=== PATIENT | female | born 1925 | race Caucasian/White ===

== ENCOUNTER 2016-09-09 09:48 | Inpatient (IN) | payer OTHER, BC ==
[~2016-09-09] VITALS: Ht 160 cm; Wt 56.9 kg
[~2016-09-09 09:48] MED LIST: ACETAMINOPHEN-1 EAC1 PO; HEPARIN SO5000 UNITS SC; SENNA PLUS TAB1 EACH PO; SYNTHROID50 MCG PO; THERAGRAN1 TABLET PO
[2016-09-09 11:05] LABS: EOSINOPHIL (%) 0.1 % (0-5); HEMATOCRIT 45.7 % (36.0-46.0); IMMATURE GRANULOCYTE (%) 0.2 % (0.0-0.7); IMMATURE GRANULOCYTE COUNT 0.2 K/uL; LYMPHOCYTE COUNT 0.6 K/uL (1.0-2.8); MCH 30.4 PG (29.0-34.0); MCHC 33.9 G/DL (30.0-36.0); MCV 89.6 FL (83-99); MEAN PLAT.VOLUME 10.8 uM^3 (9.5-12.4); MONOCYTE (%) 7.2 % (3-12); MONOCYTE COUNT 0.7 K/uL (0-0.8); NEUTROPHIL COUNT 8.4 K/uL (1.8-6.4); PLATELET COUNT 149 K/uL (156-360); RBC DIS.WIDTH-CV 13.3 % (11.8-14.6); RBC DIS.WIDTH-SD 42.7 % (39-53); WHITE BLOOD COUNT 9.8 K/uL (4.1-10.2)
[2016-09-09 11:10] LABS: INFLUENZA A VIRAL ANTIGEN POSITIVE; INFLUENZA B VIRAL ANTIGEN NEGATIVE
[2016-09-09 11:11] LABS: EOSINOPHIL (%) 0.5 % (0-5); EOSINOPHIL COUNT 0.1 K/uL (0-0.3); HEMATOCRIT 45.3 % (36.0-46.0); IMMATURE GRANULOCYTE (%) 0.3 % (0.0-0.7); IMMATURE GRANULOCYTE COUNT 0.3 K/uL; LYMPHOCYTE COUNT 0.5 K/uL (1.0-2.8); MCH 30.6 PG (29.0-34.0); MCHC 34.2 G/DL (30.0-36.0); MCV 89.3 FL (83-99); MONOCYTE (%) 9.2 % (3-12); MONOCYTE COUNT 0.9 K/uL (0-0.8); NEUTROPHIL COUNT 8.4 K/uL (1.8-6.4); PLATELET COUNT 150 K/uL (156-360); RBC DIS.WIDTH-CV 13.2 % (11.8-14.6); RBC DIS.WIDTH-SD 42.8 % (39-53); RED BLOOD COUNT 5.07 M/uL (3.80-5.20); WHITE BLOOD COUNT 9.9 K/uL (4.1-10.2)
[2016-09-09 11:14] LABS: CHLORIDE 95 mEq/L (99-109); POTASSIUM 4.6 mEq/L (3.7-5.4); SODIUM 134 mEq/L (136-147)
[2016-09-09 11:16] LABS: GLUCOSE 105 mg/dL (70-99)
[2016-09-09 11:17] LABS: ANION GAP 12 MEQ/L (2-14)
[2016-09-09 11:18] LABS: TOTAL BILIRUBIN 0.5 mg/dL (0.0-1.0)
[2016-09-09 11:19] LABS: ALKALINE PHOSPHATASE 68 IU/L (3-129)
[2016-09-09 11:20] LABS: GFR ESTIMATE (CALCULATED) > 59 mL/min/
[2016-09-09 11:21] LABS: UREA NITROGEN (BUN) 12 mg/dL (9-23)
[2016-09-09 11:22] LABS: ADD MIUA? YES; BILIRUBIN NEGATIVE; BLOOD SMALL; COLOR YELLOW ((YELLOW)); GLUCOSE (STRIP) NEGATIVE; KETONES 40; LEUKOCYTES NEGATIVE; NITRITE NEGATIVE; PROTEIN (STRIP) 30; SPECIFIC GRAVITY 1.014 (1.000-1.030)
[2016-09-09 11:23] LABS: CHLORIDE 95 mEq/L (99-109); GFR ESTIMATE (CALCULATED) > 59 mL/min/; GLUCOSE 105 mg/dL (70-99); POTASSIUM 4.6 mEq/L (3.7-5.4); SODIUM 134 mEq/L (136-147); UREA NITROGEN (BUN) 12 mg/dL (9-23)
[2016-09-09 11:49] LABS: BACTERIA NONE SEEN /HPF; EPITHELIAL CELLS RARE /HPF; MUCUS TRACE /LPF; RED BLOOD CELLS 0-5 /HPF (0-5); UCUL ADDED? NO; WHITE BLOOD CELLS 0-5 /HPF (0-5)
[2016-09-09] MEDS ORDERED: ATHENOL325 MG PO (14:00)
[2016-09-09] MEDS ORDERED: ONE DAILY TABL1 EAC1 PO (14:01)
[2016-09-09 19:01] VITALS: BP 125/80
[2016-09-09 20:40] VITALS: BP 116/78
[2016-09-09 23:18] VITALS: BP 118/78
[2016-09-10 03:04] VITALS: BP 139/63
[2016-09-10 06:43] LABS: EOSINOPHIL (%) 0 % (0-5); HEMATOCRIT 39.5 % (36.0-46.0); IMMATURE GRANULOCYTE (%) 0.1 % (0.0-0.7); LYMPHOCYTE COUNT 0.6 K/uL (1.0-2.8); MCH 29.1 PG (29.0-34.0); MCHC 32.4 G/DL (30.0-36.0); MCV 89.8 FL (83-99); MEAN PLAT.VOLUME 10.8 uM^3 (9.5-12.4); MONOCYTE (%) 7.6 % (3-12); MONOCYTE COUNT 0.6 K/uL (0-0.8); NEUTROPHIL (%) 84.6 % (45-76); PLATELET COUNT 161 K/uL (156-360); RBC DIS.WIDTH-CV 13.2 % (11.8-14.6); RBC DIS.WIDTH-SD 43.5 % (39-53); WHITE BLOOD COUNT 8.3 K/uL (4.1-10.2)
[2016-09-10 06:46] LABS: ANION GAP 9 MEQ/L (2-14); CHLORIDE 96 MEQ/L (99-109); GFR ESTIMATE (CALCULATED) > 59 mL/min/; GLUCOSE 101 mg/dL (70-99); SAMPLE HEMOLYSIS CHECK 0; SAMPLE ICTERIC CHECK 0; SAMPLE LIPEMIA CHECK 0; SODIUM 134 MEQ/L (136-147); UREA NITROGEN (BUN) 11 mg/dL (9-23)
[2016-09-10 06:47] LABS: POTASSIUM 3.6 MEQ/L (3.7-5.4)
[2016-09-10 08:47] VITALS: BP 113/67
[2016-09-10 11:00] VITALS: BP 115/62
[2016-09-10 18:19] VITALS: BP 140/35
[2016-09-10 19:40] VITALS: BP 119/61
[2016-09-10 22:39] VITALS: BP 118/62; BP 18/62
[2016-09-11 02:58] VITALS: BP 120/62
[2016-09-11 08:06] VITALS: BP 135/95
[2016-09-11 10:59] VITALS: BP 123/63
[2016-09-11 16:18] VITALS: BP 126/78
[2016-09-11 23:50] VITALS: BP 128/80
[2016-09-12 06:10] LABS: EOSINOPHIL (%) 0.3 % (0-5); HEMATOCRIT 36.7 % (36.0-46.0); IMMATURE GRANULOCYTE (%) 0.2 % (0.0-0.7); LYMPHOCYTE COUNT 0.6 K/uL (1.0-2.8); MCHC 32.4 G/DL (30.0-36.0); MCV 89.3 FL (83-99); MEAN PLAT.VOLUME 10.5 uM^3 (9.5-12.4); MONOCYTE COUNT 0.6 K/uL (0-0.8); NEUTROPHIL COUNT 4.7 K/uL (1.8-6.4); PLATELET COUNT 170 K/uL (156-360); RBC DIS.WIDTH-CV 13.1 % (11.8-14.6); RBC DIS.WIDTH-SD 43.2 % (39-53); RED BLOOD COUNT 4.11 M/uL (3.80-5.20); WHITE BLOOD COUNT 5.9 K/uL (4.1-10.2)
[2016-09-12 06:34] LABS: ANION GAP 6 MEQ/L (2-14); CHLORIDE 100 MEQ/L (99-109); GFR ESTIMATE (CALCULATED) > 59 mL/min/; GLUCOSE 90 mg/dL (70-99); SAMPLE HEMOLYSIS CHECK 0; SAMPLE ICTERIC CHECK 0; SAMPLE LIPEMIA CHECK 0; SODIUM 138 MEQ/L (136-147); UREA NITROGEN (BUN) 9 mg/dL (9-23)
[2016-09-12 08:34] VITALS: BP 164/92
[2016-09-12 16:46] VITALS: BP 160/84
[2016-09-12 22:00] VITALS: BP 128/64
[2016-09-13 08:48] VITALS: BP 151/78
[2016-09-13 17:07] VITALS: BP 152/80
[2016-09-13 22:55] VITALS: BP 148/72
[2016-09-14 06:12] LABS: EOSINOPHIL (%) 0.5 % (0-5); HEMATOCRIT 40.6 % (36.0-46.0); IMMATURE GRANULOCYTE (%) 0.2 % (0.0-0.7); LYMPHOCYTE COUNT 0.9 K/uL (1.0-2.8); MCH 28.7 PG (29.0-34.0); MCV 89.6 FL (83-99); MONOCYTE (%) 15.2 % (3-12); MONOCYTE COUNT 0.8 K/uL (0-0.8); NEUTROPHIL (%) 66.6 % (45-76); NEUTROPHIL COUNT 3.7 K/uL (1.8-6.4); RBC DIS.WIDTH-SD 42.3 % (39-53); RED BLOOD COUNT 4.53 M/uL (3.80-5.20); WHITE BLOOD COUNT 5.5 K/uL (4.1-10.2)
[2016-09-14 06:32] LABS: MEAN PLAT.VOLUME 10.4 uM^3 (9.5-12.4)
[2016-09-14 06:33] LABS: PLATELET COUNT 224 K/uL (156-360)
[2016-09-14 06:40] LABS: ANION GAP 7 MEQ/L (2-14); CHLORIDE 95 MEQ/L (99-109); GFR ESTIMATE (CALCULATED) > 59 mL/min/; GLUCOSE 96 mg/dL (70-99); POTASSIUM 3.1 MEQ/L (3.7-5.4); SAMPLE HEMOLYSIS CHECK 0; SAMPLE ICTERIC CHECK 0; SAMPLE LIPEMIA CHECK 0; SODIUM 139 MEQ/L (136-147); UREA NITROGEN (BUN) 8 mg/dL (9-23)
[2016-09-14 08:05] VITALS: BP 152/72
[2016-09-14 16:08] VITALS: BP 140/81
[2016-09-15 06:52] LABS: MCH 29.1 PG (29.0-34.0); MCHC 32.4 G/DL (30.0-36.0); MCV 89.7 FL (83-99); MEAN PLAT.VOLUME 10.5 uM^3 (9.5-12.4); PLATELET COUNT 288 K/uL (156-360); RBC DIS.WIDTH-CV 13.2 % (11.8-14.6); RBC DIS.WIDTH-SD 43.2 % (39-53); RED BLOOD COUNT 4.57 M/uL (3.80-5.20); WHITE BLOOD COUNT 6.7 K/uL (4.1-10.2)
[2016-09-15 07:10] LABS: EOSINOPHIL (%) 1.3 % (0-5); EOSINOPHIL COUNT 0.1 K/uL (0-0.3); IMMATURE GRANULOCYTE (%) 0.3 % (0.0-0.7); LYMPHOCYTE COUNT 0.9 K/uL (1.0-2.8); MONOCYTE (%) 16.1 % (3-12); MONOCYTE COUNT 1.1 K/uL (0-0.8); NEUTROPHIL (%) 69.3 % (45-76); NEUTROPHIL COUNT 4.7 K/uL (1.8-6.4)
[2016-09-15 07:23] LABS: ANION GAP 7 MEQ/L (2-14); CHLORIDE 98 MEQ/L (99-109); GFR ESTIMATE (CALCULATED) > 59 mL/min/; GLUCOSE 97 mg/dL (70-99); SAMPLE HEMOLYSIS CHECK 0; SAMPLE ICTERIC CHECK 0; SAMPLE LIPEMIA CHECK 0; SODIUM 138 MEQ/L (136-147); UREA NITROGEN (BUN) 9 mg/dL (9-23)
[2016-09-15 09:30] VITALS: BP 143/78
[2016-09-15] MEDS ORDERED: CEFTIN500 MG PO (14:50)
== END 2016-09-15 20:03 | disposition home or self-care (01) | DRG 190 ==
LOC: EME 09:48 → 5EAST 17:07 → EDOF 17:07 → 5EAST 20:11
PROVIDERS: Emergency Medicine; Family Medicine
DX: J44.0 Chronic obstructive pulmonary disease with (acute) lower respiratory infection (principal); J10.00 Influenza due to other identified influenza virus with unspecified type of pneumonia; E87.2 Acidosis; E86.0 Dehydration; J44.1 Chronic obstructive pulmonary disease with (acute) exacerbation; E03.9 Hypothyroidism, unspecified; Z86.73 Personal history of transient ischemic attack (TIA), and cerebral infarction without residual deficits; J98.11 Atelectasis; M19.90 Unspecified osteoarthritis, unspecified site; E87.6 Hypokalemia; J90 Pleural effusion, not elsewhere classified; R09.02 Hypoxemia; R41.82 Altered mental status, unspecified; Z87.891 Personal history of nicotine dependence; R53.81 Other malaise; R32 Unspecified urinary incontinence; Z66 Do not resuscitate
CPT/HCPCS: 70450; 71010; 71020; 72040; 72125; 80048; 80053; 80202; 81003; 83605; 85025; 85025 91; 87040; 87502; 93005; 94640; 94640 76; 94799; 99202; 99281; 99285; J0696; J2543; J3370; J7030; J7050

== ENCOUNTER 2016-09-17 15:37 | Inpatient (IN) | payer OTHER, BC ==
[~2016-09-17] VITALS: Ht 160 cm; Wt 53.3 kg
[~2016-09-17 15:37] MED LIST changes: +ATHENOL325 MG PO; +CEFTIN500 MG PO; +ONE DAILY TABL1 EAC1 PO
[2016-09-17 17:17] LABS: HEMATOCRIT 41.5 % (36.0-46.0); MCH 29.7 PG (29.0-34.0); MCHC 32.8 G/DL (30.0-36.0); MCV 90.6 FL (83-99); MEAN PLAT.VOLUME 9.7 uM^3 (9.5-12.4); PLATELET COUNT 385 K/uL (156-360); RBC DIS.WIDTH-CV 13.1 % (11.8-14.6); RBC DIS.WIDTH-SD 42.7 % (39-53); RED BLOOD COUNT 4.58 M/uL (3.80-5.20); WHITE BLOOD COUNT 11.3 K/uL (4.1-10.2)
[2016-09-17 17:25] LABS: ADD MIUA? NO; BILIRUBIN NEGATIVE; BLOOD NEGATIVE; COLOR YELLOW ((YELLOW)); GLUCOSE (STRIP) NEGATIVE; KETONES 5; LEUKOCYTES NEGATIVE; NITRITE NEGATIVE; PROTEIN (STRIP) NEGATIVE; SPECIFIC GRAVITY 1.017 (1.000-1.030); UROBILINOGEN 0.2 MG/DL (0.2-1.0)
[2016-09-17 17:27] LABS: CHLORIDE 101 mEq/L (99-109); POTASSIUM 4.4 mEq/L (3.7-5.4); SODIUM 137 mEq/L (136-147)
[2016-09-17 17:29] LABS: GLUCOSE 124 mg/dL (70-99)
[2016-09-17 17:30] LABS: ANION GAP 10 MEQ/L (2-14)
[2016-09-17 17:33] LABS: GFR ESTIMATE (CALCULATED) > 59 mL/min/
[2016-09-17 17:34] LABS: UREA NITROGEN (BUN) 18 mg/dL (9-23)
[2016-09-17 17:38] LABS: TROP-I INTERPRETATION NEGATIVE; TROPONIN-I < 0.01 ng/mL (0.0-0.30)
[2016-09-17 22:22] VITALS: BP 134/77
[2016-09-18 06:38] LABS: HEMATOCRIT 37.3 % (36.0-46.0); MCH 30.5 PG (29.0-34.0); MCHC 33.8 G/DL (30.0-36.0); MCV 90.3 FL (83-99); MEAN PLAT.VOLUME 10.2 uM^3 (9.5-12.4); PLATELET COUNT 380 K/uL (156-360); RBC DIS.WIDTH-CV 13.1 % (11.8-14.6); RBC DIS.WIDTH-SD 43.4 % (39-53); RED BLOOD COUNT 4.13 M/uL (3.80-5.20)
[2016-09-18 06:39] LABS: WHITE BLOOD COUNT 6.6 K/uL (4.1-10.2)
[2016-09-18 07:36] LABS: ANION GAP 6 MEQ/L (2-14); CHLORIDE 101 MEQ/L (99-109); GFR ESTIMATE (CALCULATED) > 59 mL/min/; GLUCOSE 94 mg/dL (70-99); POTASSIUM 4.2 MEQ/L (3.7-5.4); SAMPLE HEMOLYSIS CHECK 0; SAMPLE ICTERIC CHECK 0; SAMPLE LIPEMIA CHECK 0; SODIUM 137 MEQ/L (136-147); UREA NITROGEN (BUN) 13 mg/dL (9-23)
[2016-09-18 08:25] VITALS: BP 143/86
[2016-09-18 16:10] VITALS: BP 140/83
[2016-09-18 23:36] VITALS: BP 128/86
[2016-09-19 08:00] VITALS: BP 126/68
[2016-09-19 15:48] VITALS: BP 122/70
[2016-09-20 11:57] VITALS: BP 106/88
[2016-09-20] MEDS ORDERED: ROCEPHIN1000 MG IM (16:26)
== END 2016-09-20 19:25 | DRG 190 ==
LOC: EME 15:37 → EDOF 20:54 → 5EAST 20:54
PROVIDERS: Emergency Medicine; Family Medicine
DX: J44.0 Chronic obstructive pulmonary disease with (acute) lower respiratory infection (principal); J18.9 Pneumonia, unspecified organism; J44.1 Chronic obstructive pulmonary disease with (acute) exacerbation; R62.7 Adult failure to thrive; E86.0 Dehydration; E03.9 Hypothyroidism, unspecified; F03.90 Unspecified dementia, unspecified severity, without behavioral disturbance, psychotic disturbance, mood disturbance, and anxiety; R64 Cachexia; H91.90 Unspecified hearing loss, unspecified ear; M19.90 Unspecified osteoarthritis, unspecified site; Z86.73 Personal history of transient ischemic attack (TIA), and cerebral infarction without residual deficits; Z87.891 Personal history of nicotine dependence
CPT/HCPCS: 71020; 80048; 81003; 83605; 84484; 85027; 87040; 87086; 99281; 99285; J0696; J7050

== ENCOUNTER 2016-09-23 12:06 | Inpatient (IN) | payer OTHER, BC ==
[~2016-09-23] VITALS: Ht 172.7 cm; Wt 54.6 kg
[~2016-09-23 12:06] MED LIST changes: +ROCEPHIN1000 MG IM
[2016-09-23 13:17] LABS: BASOPHIL COUNT 0.1 K/uL (0-0.1); EOSINOPHIL (%) 0.3 % (0-5); HEMATOCRIT 39.1 % (36.0-46.0); IMMATURE GRANULOCYTE (%) 0.2 % (0.0-0.7); IMMATURE GRANULOCYTE COUNT 0.2 K/uL; LYMPHOCYTE COUNT 0.6 K/uL (1.0-2.8); MCH 29.5 PG (29.0-34.0); MCHC 32.5 G/DL (30.0-36.0); MCV 90.7 FL (83-99); MEAN PLAT.VOLUME 9.7 uM^3 (9.5-12.4); MONOCYTE (%) 8.9 % (3-12); MONOCYTE COUNT 1.1 K/uL (0-0.8); NEUTROPHIL (%) 85.5 % (45-76); NEUTROPHIL COUNT 10.1 K/uL (1.8-6.4); PLATELET COUNT 462 K/uL (156-360); RBC DIS.WIDTH-CV 12.7 % (11.8-14.6); RBC DIS.WIDTH-SD 41.2 % (39-53); RED BLOOD COUNT 4.31 M/uL (3.80-5.20)
[2016-09-23 13:18] LABS: WHITE BLOOD COUNT 11.8 K/uL (4.1-10.2)
[2016-09-23 13:26] LABS: INTER. NORMALIZED RATIO 1.2; PROTHROMBIN TIME 11.8 (9.2-11.2)
[2016-09-23 13:27] LABS: CHLORIDE 100 mEq/L (99-109); POTASSIUM 4.5 mEq/L (3.7-5.4); SODIUM 137 mEq/L (136-147)
[2016-09-23 13:29] LABS: GLUCOSE 124 mg/dL (70-99)
[2016-09-23 13:31] LABS: ANION GAP 7 MEQ/L (2-14)
[2016-09-23 13:33] LABS: GFR ESTIMATE (CALCULATED) > 59 mL/min/
[2016-09-23 13:34] LABS: UREA NITROGEN (BUN) 12 mg/dL (9-23)
[2016-09-23] MEDS ORDERED: ROCEPHIN1000 MG IM (14:36)
[2016-09-23] MEDS ORDERED: DULCOLAX10 MG PR (14:41)
[2016-09-23] MEDS ORDERED: MILK OF MAGN PO (14:42)
[2016-09-23] MEDS ORDERED: FLEET MINERAL133 ML PR (14:42)
[2016-09-23] MEDS ORDERED: PERCOCET 5/31 TABLET PO (14:43)
[2016-09-23 15:55] LABS: ADD MIUA? NO; BILIRUBIN NEGATIVE; BLOOD NEGATIVE; COLOR YELLOW ((YELLOW)); GLUCOSE (STRIP) NEGATIVE; KETONES NEGATIVE; LEUKOCYTES NEGATIVE; NITRITE NEGATIVE; PROTEIN (STRIP) NEGATIVE; SPECIFIC GRAVITY 1.018 (1.000-1.030); UCUL ADDED? NO; UROBILINOGEN 0.2 MG/DL (0.2-1.0)
[2016-09-24] VITALS (8 sets, daily range): BP systolic 95–137; BP diastolic 53–75
[2016-09-24 05:39] LABS: HEMATOCRIT 35.6 % (36.0-46.0); MCH 29.6 PG (29.0-34.0); MCHC 32.3 G/DL (30.0-36.0); MCV 91.8 FL (83-99); MEAN PLAT.VOLUME 10.5 uM^3 (9.5-12.4); PLATELET COUNT 359 K/uL (156-360); RBC DIS.WIDTH-SD 43.1 % (39-53); RED BLOOD COUNT 3.88 M/uL (3.80-5.20); WHITE BLOOD COUNT 12.7 K/uL (4.1-10.2)
[2016-09-24 06:13] LABS: ANION GAP 6 MEQ/L (2-14); CHLORIDE 97 MEQ/L (99-109); GFR ESTIMATE (CALCULATED) > 59 mL/min/; GLUCOSE 112 mg/dL (70-99); POTASSIUM 4.2 MEQ/L (3.7-5.4); SAMPLE HEMOLYSIS CHECK 0; SAMPLE ICTERIC CHECK 0; SAMPLE LIPEMIA CHECK 0; SODIUM 135 MEQ/L (136-147); UREA NITROGEN (BUN) 10 mg/dL (9-23)
[2016-09-24 07:03] LABS: EOSINOPHIL (%) 0.6 % (0-5); EOSINOPHIL COUNT 0.1 K/uL (0-0.3); HEMATOLOGY COMMENT 1 SMEAR COMPATIBLE; IMMATURE GRANULOCYTE (%) 0.2 % (0.0-0.7); LYMPHOCYTE COUNT 0.9 K/uL (1.0-2.8); MONOCYTE (%) 5.8 % (3-12); MONOCYTE COUNT 0.7 K/uL (0-0.8); NEUTROPHIL (%) 85.7 % (45-76); NEUTROPHIL COUNT 10.9 K/uL (1.8-6.4); PLAT.SUFFICIENCY ADEQUATE; USER ID TLW
[2016-09-25 04:21] VITALS: BP 110/55
[2016-09-25 05:29] LABS: HEMATOCRIT 33.4 % (36.0-46.0)
[2016-09-25 08:00] VITALS: BP 122/61
[2016-09-25 11:40] VITALS: BP 120/63
[2016-09-25 16:00] VITALS: BP 117/62
[2016-09-25 19:47] VITALS: BP 103/54
[2016-09-25 23:52] VITALS: BP 111/64
[2016-09-26 03:46] VITALS: BP 110/66
[2016-09-26 08:00] VITALS: BP 110/69
[2016-09-26 12:00] VITALS: BP 120/55
[2016-09-26 16:00] VITALS: BP 103/54
[2016-09-26] MEDS ORDERED: LOVENOX30 MG/0.3 SC (16:44)
[2016-09-26] MEDS ORDERED: ROCEPHIN1000 MG IM (16:44)
== END 2016-09-26 19:14 | DRG 469 ==
LOC: EME → EDBD 12:06 → EME 12:06 → 3EAST 14:21 → EDOF 14:21 → 3EAST 09-24 00:53
PROVIDERS: Emergency Medicine; Family Medicine Sports Medicine; Orthopaedic Surgery
PROC: 0SRS039 Replacement of Left Hip Joint, Femoral Surface with Ceramic Synthetic Substitute, Cemented, Open Approach (ICD-10-PCS; principal; 2016-09-23)
DX: S72.002A Fracture of unspecified part of neck of left femur, initial encounter for closed fracture (principal); J18.9 Pneumonia, unspecified organism; W18.30XA Fall on same level, unspecified, initial encounter; Y93.9 Activity, unspecified; Y92.129 Unspecified place in nursing home as the place of occurrence of the external cause; I10 Essential (primary) hypertension; J44.9 Chronic obstructive pulmonary disease, unspecified; K21.9 Gastro-esophageal reflux disease without esophagitis; F41.9 Anxiety disorder, unspecified; E03.9 Hypothyroidism, unspecified; F03.90 Unspecified dementia, unspecified severity, without behavioral disturbance, psychotic disturbance, mood disturbance, and anxiety; E86.0 Dehydration; M19.90 Unspecified osteoarthritis, unspecified site; Z87.891 Personal history of nicotine dependence; Z86.73 Personal history of transient ischemic attack (TIA), and cerebral infarction without residual deficits
CPT/HCPCS: 71010; 72170; 73502; 80048; 81003; 85014; 85018; 85025; 85610; 86850; 86900; 86901; 93005; 94799; 97530 GO; 97530 GP; 99281; 99285; C1713; J0330; J0690; J0696; J1170; J1650; J2270; J3010; J7050; J7120

== ENCOUNTER 2017-04-26 22:48 | Emergency (ER) | payer OTHER, BC ==
[~2017-04-26] VITALS: Ht 172.7 cm; Wt 50.5 kg
[~2017-04-26 22:48] MED LIST changes: +DULCOLAX10 MG PR; +FLEET MINERAL133 ML PR; +LOVENOX30 MG/0.3 SC; +MILK OF MAGN PO; +PERCOCET 5/31 TABLET PO
[2017-04-27 00:06] LABS: EOSINOPHIL (%) 0 % (0-5); HEMATOCRIT 42.9 % (36.0-46.0); IMMATURE GRANULOCYTE (%) 0.4 % (0.0-0.7); IMMATURE GRANULOCYTE COUNT 0.1 K/uL; INSTRUMENT ABS NEUTROPHIL CT 14.6 K/uL; LYMPHOCYTE COUNT 0.7 K/uL (1.0-2.8); MCH 29.7 PG (29.0-34.0); MCHC 31.9 G/DL (30.0-36.0); MCV 93.1 FL (83-99); MEAN PLAT.VOLUME 9.4 uM^3 (9.5-12.4); MONOCYTE (%) 4.8 % (3-12); MONOCYTE COUNT 0.8 K/uL (0-0.8); NEUTROPHIL (%) 90.3 % (45-76); NEUTROPHIL COUNT 14.6 K/uL (1.8-6.4); PLATELET COUNT 412 K/uL (156-360); RBC DIS.WIDTH-CV 12.4 % (11.8-14.6); RBC DIS.WIDTH-SD 42.5 % (39-53); RED BLOOD COUNT 4.61 M/uL (3.80-5.20); WHITE BLOOD COUNT 16.2 K/uL (4.1-10.2)
[2017-04-27 00:16] LABS: CHLORIDE 98 mEq/L (99-109); POTASSIUM 3.8 mEq/L (3.7-5.4); SODIUM 144 mEq/L (136-147)
[2017-04-27 00:18] LABS: GLUCOSE 178 mg/dL (70-99)
[2017-04-27 00:19] LABS: ANION GAP 9 MEQ/L (2-14)
[2017-04-27 00:22] LABS: GFR ESTIMATE (CALCULATED) > 59 mL/min/
[2017-04-27 00:23] LABS: UREA NITROGEN (BUN) 26 mg/dL (9-23)
[2017-04-27 00:29] LABS: TROP-I INTERPRETATION NEGATIVE; TROPONIN-I < 0.01 ng/mL (0.0-0.30)
[2017-04-27 02:12] LABS: ADD MIUA? YES; BILIRUBIN NEGATIVE; BLOOD SMALL; COLOR AMBER ((YELLOW)); GLUCOSE (STRIP) NEGATIVE; KETONES NEGATIVE; LEUKOCYTES MODERATE; NITRITE NEGATIVE; PROTEIN (STRIP) 100; SPECIFIC GRAVITY 1.013 (1.000-1.030); UROBILINOGEN 0.2 MG/DL (0.2-1.0)
[2017-04-27 02:55] LABS: EPITHELIAL CELLS 4+ /HPF
[2017-04-27 02:56] LABS: AMORPHOUS PHOSPHATE CRYSTALS 2+; BACTERIA 3+ /HPF; CRYSTALS PRESENT; RED BLOOD CELLS NONE SEEN /HPF (0-5); UCUL ADDED? YES; WHITE BLOOD CELLS 30-40 /HPF (0-5)
[2017-04-27 03:05] LABS: CASTS NONE SEEN /LPF; MUCUS NONE SEEN /LPF
[2017-04-27 05:38] VITALS: BP 113/70
[2017-04-27] MEDS ORDERED: MIRTAZAPINE15 MG PO (08:33)
[2017-04-27] MEDS ORDERED: SYNTHROID50 MCG PO (08:35)
[2017-04-27] MEDS ORDERED: AUGMENTIN875 MG PO (08:36)
[2017-04-27] MEDS ORDERED: TRAZODONE HCL50 MG PO (08:36)
[2017-04-27] MEDS ORDERED: CALCIUM 600 +1 EAC6 PO (08:37)
[2017-04-27] MEDS ORDERED: FLOVENT 11120 INHALA IH (08:38)
[2017-04-27] MEDS ORDERED: COLACE100 MG PO (08:38)
[2017-04-27] MEDS ORDERED: PREDNISONE20 MG PO (08:39)
[2017-04-27] MEDS ORDERED: BUSPIRONE HCL7.5 MG PO (08:40)
[2017-04-27] MEDS ORDERED: DUONEB 2.5-0.5 M3 ML AEROSOL (08:40)
[2017-04-27] MEDS ORDERED: TYLENOL REGULA325 MG PO (08:41)
== END 2017-04-27 05:41 ==
LOC: EME 22:48
PROVIDERS: Emergency Medicine
DX: N39.0 Urinary tract infection, site not specified (principal); R41.0 Disorientation, unspecified; E86.0 Dehydration; F03.90 Unspecified dementia, unspecified severity, without behavioral disturbance, psychotic disturbance, mood disturbance, and anxiety; I10 Essential (primary) hypertension; J44.9 Chronic obstructive pulmonary disease, unspecified; E03.9 Hypothyroidism, unspecified; K21.9 Gastro-esophageal reflux disease without esophagitis; F41.9 Anxiety disorder, unspecified; Z86.73 Personal history of transient ischemic attack (TIA), and cerebral infarction without residual deficits; Z87.891 Personal history of nicotine dependence; Z66 Do not resuscitate
CPT/HCPCS: 70450; 71010; 80048; 81003; 83605; 84484; 85025; 87040; 87086; 87106; 93005; 99281; 99285; J0696; J7030; J7050